=== PATIENT | male | born 1990 | race African-American/Black ===

== ENCOUNTER 2020-12-13 18:44 | Emergency (ER) | payer OTHER ==
[~2020-12-13] VITALS: Ht 193 cm; Wt 92.7 kg
--- NOTE | 2020-12-13 19:14 | NUR ---
YELITZA AT BEDSIDE FOR EVAL AT THIS TIME
[2020-12-13] MEDS ORDERED: ONDANSETRON 2MG/ML, 2ML IVPush ONE (19:30)
[2020-12-13] MEDS ORDERED: SODIUM CHLORIDE 0.9% 1,000ML IVBOLUS ONE ×2 (19:30→20:30)
[2020-12-13] MEDS ORDERED: SODIUM CHLORIDE FLUSH 10ML SYR IVF ONE (19:30)
[2020-12-13 19:54] LABS: BASOPHILS % (AUTO) 1 % (0-1); EOSINOPHILS % (AUTO) 2 % (1-7); LYMPHOCYTES % (AUTO) 29 % (22-44); MEAN CORPUSCULAR HEMOGLOBIN 28.4 pg (27.5-34.5); MEAN CORPUSCULAR HGB CONC 33.4 g/dL (33.2-36.2); MEAN PLATELET VOLUME 7.3 fL (7.4-10.4); MONOCYTES % (AUTO) 6 % (2-9); NEUTROPHILS % (AUTO) 63 % (42-75); PLATELET COUNT 245 x10^3/uL (130-400); RED BLOOD COUNT 5.49 x10^6/uL (4.38-5.82); RED CELL DISTRIBUTION WIDTH 14.6 % (9.4-14.8)
[2020-12-13 20:03] LABS: ALANINE AMINOTRANSFERASE 23 U/L (12-78); ALBUMIN 4.2 g/dL (3.4-5.0); ANION GAP 5 mmol/L (5-15); CALCIUM 8.9 mg/dL (8.5-10.1); CHLORIDE 108 mmol/L (98-107); CREATININE 1.28 mg/dL (0.7-1.3)
[2020-12-13 20:07] LABS: ALKALINE PHOSPHATASE 80 U/L (45-117); BILIRUBIN,TOTAL 0.5 mg/dL (0.2-1.0); TOTAL PROTEIN 7.3 g/dL (6.4-8.2); TROPONIN I < 0.015 ng/mL (0.000-0.045)
--- NOTE | 2020-12-13 20:13 | NUR ---
PIV STARTED, FLUIDS INFUSING, PT STS HE DOES NOT WANT NAUSEA MEDICATION AT THIS TIME BUT WILL INFORM RN IF NEEDED LATER.
--- NOTE | 2020-12-13 20:33 | NUR ---
2L STARTED AT THIS TIME, PT RESTING ON ANITA WARE
--- NOTE | 2020-12-13 21:30 | NUR ---
ERP AT BEDSIDE FOR RECHECK AND POC
--- NOTE | 2020-12-13 21:58 | NUR ---
PT RESTING ON ANITA WARE DENIES NEEDS
[2020-12-13 22:11] LABS: FREE T4 (FREE THYROXINE) 1.06 ng/dL (0.76-1.46)
--- NOTE | 2020-12-13 22:35 | NUR ---
YELITZA AT BEDSIDE FOR POC
[2020-12-13 22:51] VITALS: BP 118/66
--- NOTE | 2020-12-13 22:54 | NUR ---
Patient/Caregiver given discharge instructions and they have confirmed that they understand the instructions. Patient ambulatory with steady gait. NAD, all questions answered appropriately, denies additional needs at this time. No personal belongings left in room after discharge.
== END 2020-12-13 22:56 | disposition home or self-care (01) ==
LOC: ED 19:15
DX: R06.00 Dyspnea, unspecified (principal); R00.2 Palpitations; R06.02 Shortness of breath; R07.89 Other chest pain; R00.0 Tachycardia, unspecified
CPT/HCPCS: 36415; 71045; 80053; 84439; 84443; 84484; 85025; 85379; 93005; 96360; 96361; 99285; J7030

== ENCOUNTER 2021-01-12 15:47 | Emergency (ER) | payer MEDICAID ==
[~2021-01-12] VITALS: Ht 193 cm; Wt 91.6 kg
[2021-01-12 17:09] LABS: BASOPHILS % (AUTO) 0 % (0-1); EOSINOPHILS % (AUTO) 2 % (1-7); LYMPHOCYTES % (AUTO) 24 % (22-44); MEAN CORPUSCULAR HEMOGLOBIN 28.9 pg (27.5-34.5); MEAN PLATELET VOLUME 7.3 fL (7.4-10.4); MONOCYTES % (AUTO) 6 % (2-9); NEUTROPHILS % (AUTO) 68 % (42-75); PLATELET COUNT 239 x10^3/uL (130-400); RED BLOOD COUNT 5.42 x10^6/uL (4.38-5.82); RED CELL DISTRIBUTION WIDTH 14.7 % (9.4-14.8)
[2021-01-12 17:16] LABS: ALANINE AMINOTRANSFERASE 21 U/L (12-78); ALBUMIN 4.2 g/dL (3.4-5.0); ANION GAP 6 mmol/L (5-15); CALCIUM 9.1 mg/dL (8.5-10.1); CHLORIDE 104 mmol/L (98-107); CREATININE 1.21 mg/dL (0.7-1.3)
[2021-01-12 17:18] LABS: ALKALINE PHOSPHATASE 71 U/L (45-117); BILIRUBIN,TOTAL 0.6 mg/dL (0.2-1.0); TOTAL PROTEIN 7.3 g/dL (6.4-8.2)
--- NOTE | 2021-01-12 17:24 | NUR ---
credit assessment analyst: Pt ambulatory to room from lobby at this time.
--- NOTE | 2021-01-12 17:33 | NUR ---
ASSUMED CARE OF PT. C/O CRAMPING ABD PAIN X3 DAYS, SOME N/D. PT IN GOWN, HOOKED TO BP, AND SPO2 MONITOR. NADN, CALL LIGHT W/IN REACH. BEDSIDE
[2021-01-12 17:52] LABS: MICROSCOPIC NOT IND
[2021-01-12] MEDS ORDERED: DICYCLOMINE 10 MG/ML, 2ML IM ONE (18:00)
[2021-01-12] MEDS ORDERED: KETOROLAC 30 MG/1 ML IM ONE (18:00)
[2021-01-12] MEDS ORDERED: KETOROLAC 30 MG/1 ML ONE (18:01)
[2021-01-12] MEDS ORDERED: DICYCLOMINE 10 MG/ML, 2ML ONE (18:01)
[2021-01-12 18:07] VITALS: BP 117/75
--- NOTE | 2021-01-12 18:07 | NUR ---
pt medicated per AUG. Requesting water, will follow up w/ MD first. JOVITAN, call light w/in reach
--- NOTE | 2021-01-12 19:04 | NUR ---
SBAR REPORT GIVEN TO PREET. NO TASK, PT TO BE DC'D.
== END 2021-01-12 19:06 | disposition home or self-care (01) ==
LOC: ED 18:55
DX: R10.11 Right upper quadrant pain (principal); R10.31 Right lower quadrant pain; R19.7 Diarrhea, unspecified
CPT/HCPCS: 36415; 80053; 81003; 85025; 96372; 99284; J0500; J1885

== ENCOUNTER 2021-02-12 20:57 | Emergency (ER) | payer MEDICAID ==
[~2021-02-12] VITALS: Ht 193 cm; Wt 87.3 kg
--- NOTE | 2021-02-12 23:25 | NUR ---
INTERNET E COMMERCE SPECIALIST: PT. TO ROOM FROM LOBBY AT THIS TIME.
[2021-02-13 00:08] LABS: BASOPHILS % (AUTO) 1 % (0-1); EOSINOPHILS % (AUTO) 1 % (1-7); LYMPHOCYTES % (AUTO) 29 % (22-44); MEAN CORPUSCULAR HEMOGLOBIN 29.1 pg (27.5-34.5); MEAN CORPUSCULAR HGB CONC 33.5 g/dL (33.2-36.2); MEAN PLATELET VOLUME 7.2 fL (7.4-10.4); MONOCYTES % (AUTO) 7 % (2-9); NEUTROPHILS % (AUTO) 63 % (42-75); PLATELET COUNT 210 x10^3/uL (130-400); RED BLOOD COUNT 5.23 x10^6/uL (4.38-5.82); RED CELL DISTRIBUTION WIDTH 15.3 % (9.4-14.8)
[2021-02-13 00:17] LABS: ALANINE AMINOTRANSFERASE 19 U/L (12-78); ALBUMIN 3.6 g/dL (3.4-5.0); ANION GAP 6 mmol/L (5-15); CALCIUM 8.8 mg/dL (8.5-10.1); CHLORIDE 106 mmol/L (98-107); CREATININE 1.03 mg/dL (0.7-1.3)
[2021-02-13 00:22] LABS: ALKALINE PHOSPHATASE 63 U/L (45-117); BILIRUBIN,TOTAL 0.8 mg/dL (0.2-1.0); TOTAL PROTEIN 6.8 g/dL (6.4-8.2); TROPONIN I < 0.015 ng/mL (0.000-0.045)
[2021-02-13 00:59] VITALS: BP 122/82
== END 2021-02-13 01:01 | disposition home or self-care (01) ==
LOC: ED 23:59
DX: R07.2 Precordial pain (principal); M54.9 Dorsalgia, unspecified; R51.9 Headache, unspecified; R42 Dizziness and giddiness; R11.0 Nausea; R35.0 Frequency of micturition; R00.0 Tachycardia, unspecified; Z21 Asymptomatic human immunodeficiency virus [HIV] infection status; F17.200 Nicotine dependence, unspecified, uncomplicated
CPT/HCPCS: 36415; 71045; 80053; 84484; 85025; 93005; 99285

== ENCOUNTER 2021-02-27 17:10 | Emergency (ER) | payer MEDICAID ==
[~2021-02-27] VITALS: Ht 193 cm; Wt 86.4 kg
[2021-02-27 17:32] VITALS: BP 139/80
--- NOTE | 2021-02-27 21:27 | NUR ---
NIL X1 WHEN CALLED BY PROVIDER
--- NOTE | 2021-02-27 22:26 | NUR ---
NA X 2
--- NOTE | 2021-02-27 23:13 | NUR ---
NA X 3
== END 2021-02-27 23:15 | disposition left against medical advice (07) ==
LOC: ED 17:30
DX: J02.9 Acute pharyngitis, unspecified (principal); Z53.21 Procedure and treatment not carried out due to patient leaving prior to being seen by health care provider